=== PATIENT | female | born 1985 | race Two or more races ===

== ENCOUNTER 2021-03-23 11:54 | Emergency (ER) | payer OTHER ==
[~2021-03-23] VITALS: Ht 167.6 cm; Wt 72.6 kg
--- NOTE | 2021-03-23 12:06 | NUR ---
The patient bibs for c/o left shoulder pain and heel numbness x 2 months 01/01 PS, denies injury. No apparent deformity noted. Will continue to monitor the patient.
--- NOTE | 2021-03-23 12:14 | NUR ---
Patient discharged to home in stable condition. Written and verbal after care instructions given. Patient verbalizes understanding of instruction. The patient has stable gait.
[2021-03-23 12:18] VITALS: BP 128/76
== END 2021-03-23 12:22 | disposition home or self-care (01) ==
LOC: ER 11:54
DX: M54.2 Cervicalgia (principal); M25.512 Pain in left shoulder; R20.0 Anesthesia of skin; Z88.6 Allergy status to analgesic agent

== ENCOUNTER 2021-05-25 11:54 | Emergency (ER) | payer OTHER ==
[~2021-05-25] VITALS: Ht 167.6 cm; Wt 59.0 kg
[2021-05-25 12:06] VITALS: BP 129/81
[2021-05-25] MEDS ORDERED: MOXI3DRO EACHEYE (12:09)
--- NOTE | 2021-05-25 12:20 | NUR ---
Patient discharged to home in stable condition. Written and verbal after care instructions given. Patient verbalizes understanding of instruction.
== END 2021-05-25 12:20 | disposition home or self-care (01) ==
LOC: ER 11:57
DX: H01.003 Unspecified blepharitis right eye, unspecified eyelid (principal); Z88.6 Allergy status to analgesic agent

== ENCOUNTER 2022-10-01 20:13 | Emergency (ER) | payer OTHER ==
[~2022-10-01] VITALS: Ht 167.6 cm; Wt 77.6 kg
[~2022-10-01 20:13] MED LIST: MOXI3DRO EACHEYE
[2022-10-01] MEDS ORDERED: KETOROLAC TROMETHAMINE INJ 30 MG/ML VIAL ONE ×2 (21:28→23:02)
[2022-10-01] MEDS ORDERED: KETOROLAC TROMETHAMINE INJ 30 MG/ML VIAL IM ONE ×2 (21:30→23:00)
[2022-10-01] MEDS ORDERED: LIDOCAINE 5% (PATCH) 1 EA PATCH TP ONE ×2 (23:00→23:02)
[2022-10-01] MEDS ORDERED: METH-649 PO (23:01)
[2022-10-01] MEDS ORDERED: IBUP-1955 PO (23:01)
[2022-10-01] MEDS ORDERED: LIDO30AD10 TP (23:01)
[2022-10-01 23:36] VITALS: BP 130/82
== END 2022-10-01 23:36 | disposition home or self-care (01) ==
LOC: ER 20:15
DX: M25.511 Pain in right shoulder (principal); Z88.8 Allergy status to other drugs, medicaments and biological substances; Z79.899 Other long term (current) drug therapy
CPT/HCPCS: 99284; 96372 ×2; 73030; J1885 ×2

== ENCOUNTER 2025-01-20 21:55 | Emergency (ER) | payer OTHER ==
[~2025-01-20 21:55] MED LIST changes: +IBUP-1955 PO; +LIDO30AD10 TP; +METH-649 PO
== END 2025-01-20 22:31 | disposition left against medical advice (07) ==
LOC: ER 21:59
DX: H57.10 Ocular pain, unspecified eye (principal); Z53.21 Procedure and treatment not carried out due to patient leaving prior to being seen by health care provider